=== PATIENT | female | born 1960 | race Caucasian/White ===

== ENCOUNTER 2022-07-31 10:48 | Emergency (ER) | payer OTHER, MEDICAID, SELFPAY ==
--- NOTE | ~2022-07-31 | XR_ITS ---
EXAMINATION: XR finger 5th LT min 2V DATE: 07/31/2022 11:45 INDICATION: Dislocation of left hand fifth proximal interphalangeal joint status post reduction. TECHNIQUE: 3 views of left hand fifth digit were obtained. COMPARISON: Left hand fifth digit radiographs at 11:01 AM FINDINGS: Bone alignment is normal. There is a bone fragment palmar to head of fifth proximal phalanx . 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 IMPRESSION: 1. Normal alignment at fifth proximal interphalangeal joint. 2. Bone fragment palmar to head of fifth proximal phalanx, which may be an acute avulsion fracture of base of fifth middle phalanx or a chronic finding. Reviewed, dictated and finalized at location A. IMPRESSION: 1. Normal alignment at fifth proximal interphalangeal joint. 2. Bone fragment palmar to head of fifth proximal phalanx, which may be an acut e avulsion fracture of base of fifth middle phalanx or a chronic finding.
--- NOTE | ~2022-07-31 | XR_ITS ---
EXAMINATION: XR finger 5th LT min 2V DATE: 07/31/2022 11:06 INDICATION: Dislocation of left hand fifth digit. TECHNIQUE: 3 views of left hand fifth digit were obtained. COMPARISON: None. FINDINGS: There is ulnar-sided dislocation of fifth middle phalanx with respect to the proximal phala nx. There is a small bone fragment palmar to head of fifth proximal phalanx. Other joint spaces are n ormal. IMPRESSION: 1. Dislocation of fifth proximal interphalangeal joint. 2. Chip fracture fragment palmar to head of fifth proximal phalanx that may be from the base of the f ifth middle phalanx. Reviewed, dictated and finalized at location A. IMPRESSION: 1. Dislocation of fifth proximal interphalangeal joint. 2. Chip fracture fragment palmar to head of fifth proximal phalanx that may be from the base of the fifth middle phalanx.
[2022-07-31 10:51] VITALS: BP 119/80; PULSE 82; RESP 18; TEMP 36.2; O2SAT 97
[2022-07-31 10:58] VITALS: O2SAT 99
[2022-07-31 11:02] VITALS: BP 130/89; O2SAT 98
[2022-07-31 11:16] VITALS: BP 111/72; O2SAT 98
--- NOTE | 2022-07-31 11:36 | ED.UPPEXIN ---
HPI - Extremity Injury (Upper) General Chief Complaint: Extremity Injury, Upper <SAROJ Higuera Last Filed: 07/31/22 15:32> Stated Complaint: L 5TH DIGIT INJURY <SAROJ Higuera Last Filed: 07/31/22 15:32> Time Seen by Provider: 07/31/22 11:05 <SAROJ Higuera Last Filed: 07/31/22 15:32> Source: patient <SAROJ Higuera Last Filed: 07/31/22 15:32> Mode of arrival: ambulatory <SAROJ Higuera Filed: 07/31/22 15:32> Limitations: no limitations <SAROJ Higuera Filed: 07/31/22 15:32> History of Present Illness HPI narrative: Patient is a 62 y/o female who presents to the ED with c/o finger deformity. Patient reports she was carrying a box today at work when she tripped and fell. She did not hit her head or lose consciousness. A co-worker noticed her left fifth digit appeared deformed and dislocated after the fall. Patient then drove home and had her daughter bring her to the ER. Patient denies any numbness, tingling, other injuries. She has not taken anything for pain prior to arrival. <SAROJ Higuera Last Filed: 07/31/22 15:32> Related Data Allergies/Adverse Reactions: Allergies Allergy/AdvReac Type Severity Reaction Status Date / Time acetaminophen [From Tylenol] AdvReac Abdominal Verified 07/31/22 11:38 Pain Sulfa (Sulfonamide AdvReac Difficulty Verified 07/31/22 11:38 Antibiotics) Swallowing <SAROJ Higuera Last Filed: 07/31/22 15:32> Review of Systems Review of Systems: CONSTITUTIONAL: Denies fever, chills, or sweats. MUSCULOSKELETAL: Reports pain and deformity to left fifth digit. NEUROLOGIC: Denies HI, LOC, tingling, numbness, or weakness. <SAROJ Higuera Last Filed: 07/31/22 15:32> All systems reviewed & are unremarkable except as noted in HPI and below <Iza Sarkar PA-C - Last Filed: 07/31/22 15:32> PMFSH Past Medical History Medical History: Medical History (Updated 07/31/22 @ 12:49 by Iza Sarkar PA-C) Adrenal cancer Anxiety Depression Hypothyroid Lung cancer Throat cancer Vertigo <Iza Sarkar PA-C - Last Filed: 07/31/22 15:32> Surgical History Surgical History: Surgical History History of insertion of tunneled central venous catheter (CVC) with port <Iza Sarkar PA-C - Last Filed: 07/31/22 15:32> Social History Social History: Social History Smoking status: Never smoker <Iza Sarkar PA-C - Last Filed: 07/31/22 15:32> Exam Narrative: GENERAL: Well appearing, well-nourished, non-toxic, in mild acute distress. HEAD: Normocephalic, atraumatic. NECK: Supple. No adenopathy, no masses. RESPIRATORY: Airway patent, respirations nonlabored. CARDIOVASCULAR: Regular rate and rhythm without murmurs, rubs, or gallops. Radial pulses 2+ and equal bilaterally. MUSCULOSKELETAL: Limited range of motion of left fifth digit due to deformity. Dislocation deformity at PIP joint of L 5th digit with distal digit extending laterally. Sensation intact. TTP over PIP joint. SKIN: Warm, dry, normal color. No rashes. NEURO: A&O X3. Speech clear. Cranial nerves II-XII grossly intact. Steady gait. No ataxic movements. PSYCHIATRIC: Appropriate mood and affect. Normal interaction. <Iza Sarkar PA-C - Last Filed: 07/31/22 15:32> Course INFORMATION ASSURANCE ANALYST/PA Physician Supervision For this patient encounter, I reviewed the INFORMATION ASSURANCE ANALYST or PA documentation, treatment plan, and medical decision making; and I had [id number] time with this patient. <Hossein Willams MD - Last Filed: 07/31/22 18:30> Vital Signs Vital signs: Vital Signs Temperature 97.1 F L 07/31/22 10:51 Pulse Rate 82 07/31/22 10:51 Respiratory Rate 18 07/31/22 10:51 Blood Pressure
[2022-07-31] MEDS: KETOROLAC (*BKC) 60 MG/2 ML VIAL IM (11:44)
[2022-07-31 13:00] VITALS: BP 144/93; PULSE 84; RESP 12; O2SAT 98
== END 2022-07-31 13:01 | disposition home or self-care (01) ==
LOC: ANHED 12:38
PROVIDERS: Emergency Provider Emergency Medicine
DX: S62.627A Displaced fracture of middle phalanx of left little finger, initial encounter for closed fracture (principal); Z85.858 Personal history of malignant neoplasm of other endocrine glands; Z85.118 Personal history of other malignant neoplasm of bronchus and lung; Z85.819 Personal history of malignant neoplasm of unspecified site of lip, oral cavity, and pharynx; W01.0XXA Fall on same level from slipping, tripping and stumbling without subsequent striking against object, initial encounter
CPT/HCPCS: 26770; 73140; 96372; 99285; J1885